=== PATIENT | male | born 1970 | race Caucasian/White ===

== ENCOUNTER 2017-09-20 13:38 | Emergency (ER) | payer SELFPAY ==
--- NOTE | 2017-09-20 13:53 | EDPHY ---
H & P Time Seen by Provider: 09/20/17 13:52 HPI/ROS: CHIEF COMPLAINT: Severe right flank pain HISTORY OF PRESENT ILLNESS: 1 hr prior to arrival had sudden onset of right flank pain only was in the bathroom trying to have a bowel movement. Intermittent pain waxing and waning at its worst was 10/10 and severe, radiating around to the right anterior abdomen into the tip of his penis. No other symptoms. No recent trauma or injury. At the time of my evaluation the patient is asymptomatic and the pain is gone. It is not changed by movement or position at this time. REVIEW OF SYSTEMS: Eye: no change in vision ENT: no sore throat Cardiac: no chest pain or syncope Pulmonary: no cough or SOB Abdomen: HPI Musculoskeletal: HPI Skin: no rash Neuro: no headache Constitutional: no fever : Burning at the tip of his penis with symptoms but no dysuria or hematuria. A comprehensive 10 point review of systems is otherwise negative aside from elements mentioned in the history of present illness. PAST MEDICAL HISTORY: Right talus fracture playing soccer Social history: Originally from [place] has lived in the [place] For several decades t 36.8 General Appearance: Alert and conversant, cooperative. Eyes: No scleral icterus. ENT, Mouth: Normal mucous membranes. Respiratory: Normal respiratory effort, breath sounds equal, lungs are clear to auscultation. Cardiovascular: Regular rate and rhythm. Gastrointestinal: Abdomen is soft and non tender. No McBurney's point tenderness. Bowel sounds present. No pulsatile mass, male is normal. Neurological: Alert, ambulatory, normal motor and sensory. Skin: Warm and dry, no rashes. No zoster. Musculoskeletal: No peripheral edema. Psychiatric: Not agitated. Emergency Department course/MDM: Urine dip is positive for blood. Patient has a classic presentation for acute renal colic, and is currently asymptomatic. Imaging including CT and ultrasound discussed and the patient declined which I think is reasonable. Oral NSAIDs for 3 days, Percocet 11. For breakthrough pain, primary care or urology follow-up. Smoking Status: Never smoked Constitutional: Initial Vital Signs Heart Rate 59 L 09/20/17 13:43 Respiratory Rate 24 H 09/20/17 13:43 Blood Pressure 122/75 H 09/20/17 13:43 O2 Sat (%) 98 09/20/17 13:43 O2 Delivery Mode Room Air Allergies/Adverse Reactions: strawberry Allergy (Verified 09/20/17 13:42) Home Medications: Medication Instructions Recorded oxyCODONE/APAP 5/325 [Percocet] 1 - 2 tab PO Q4-6PRN PRN #11 tab 09/20/17 Medical Decision Making Differential Diagnosis: Differential considered including but not limited to zoster, muscular pain, pinched nerve, renal colic, vascular problem such as aortic aneurysm or dissection, UTI. - Data Points Medications Given: Discontinued Medications Ibuprofen (Motrin) 600 mg PO EDNOW ONE Stop: 09/20/17 14:12 Last Admin: 09/20/17 14:20 Dose: 600 mg Point of Care Test Results: Urine Dip Collection Date 09/20/17 Collection Time 14:02 Specific [place] (1.002-1.030) 1.015 PH (5.0-7.5) 6.0 Leukocytes (Negative) Negative Nitrites (Negative) Negative Protein (Negative) Trace Glucose (Negative) Negative Ketones (Negative) 1+ Bilirubin (Negative) Negative Blood (Negative) 3+ Departure - Departure Disposition: Home, Routine, Self-Care Clinical Impression: Renal colic on right side Condition: Good Instructions: Oxycodone/Acetaminophen (By mouth), Renal Colic (ED) Additional Instructions: Drink plenty of fluids. Oral ibuprofen 600 mg every 8 hr for the next 3 days. Please strain urine and bring any stone to referral physician, either primary care at [facility] or Urology at Dr. Oliva. Return for severe pain not controlled by medication, vomiting, fever, new symptoms. Referrals: [facility],. [Clinic] - As per Instructions Gavin Oliva MD [Medical Doctor] - As per Instructions Prescriptions: oxyCODONE/APAP 5/325 [Percocet] 1 - 2 tab PO Q4-6PRN PRN #11 tab PRN Reason: Pain
[2017-09-20] MEDS ORDERED: IBUPROFEN 600 MG TAB PO ONE (14:11)
[2017-09-20 14:23] VITALS: BP 104/68
== END 2017-09-20 14:25 | disposition home or self-care (01) ==
DX: N23 Unspecified renal colic (principal)